=== PATIENT | female | born 1995 | race Two or more races ===

== ENCOUNTER 2021-07-03 13:26 | Emergency (ER) | payer BC, OTHER ==
[2021-07-03 13:53] VITALS: BP 101/58; PULSE 108; TEMP 98.2; BMI 26.6
[2021-07-03] MEDS ORDERED: KETOROLAC TROMETHAMINE 30 MG/1 ML VIAL IM ONE (15:17)
[2021-07-03] MEDS ORDERED: KETOROLAC TROMETHAMINE 30 MG/1 ML VIAL ONE (15:19)
[2021-07-03] MEDS ORDERED: ACETAMINOPHEN 500 MG TABLET (FP) ONE (16:47)
== END 2021-07-03 16:45 | disposition home or self-care (01) ==
LOC: JERFT 13:26
PROC: 3E0233Z Introduction of Anti-inflammatory into Muscle, Percutaneous Approach (ICD-10-PCS; principal; 2021-07-03)
DX: S82.832A Other fracture of upper and lower end of left fibula, initial encounter for closed fracture (principal); W10.1XXA Fall (on)(from) sidewalk curb, initial encounter; Y93.01 Activity, walking, marching and hiking
CPT/HCPCS: 73610-TC-LT-FY; 73630-TC-LT; 99284-25

== ENCOUNTER 2021-07-11 04:25 | Day surgery (SDC) | payer BC, OTHER ==
[2021-07-10 12:05] VITALS: BMI 25.8
[2021-07-11] MEDS ORDERED: MIDAZOLAM HCL 2 MG/2 ML SINGLE DOSE VIAL ONE ×2 (09:01)
[2021-07-11] MEDS ORDERED: BUPIVACAINE HCL/PF 0.5% (5MG/ML) 10 ML VIAL ONE (09:02)
[2021-07-11] MEDS ORDERED: BUPIVACAINE LIPOSOME/PF (EXPAREL) 266 MG/20 ML VIAL ONE (09:02)
[2021-07-11] MEDS ORDERED: MEPERIDINE HCL 25 MG/ML VIAL ONE (11:28)
[2021-07-11] MEDS ORDERED: ONDANSETRON 4 MG/2 ML VIAL IVPUSH PRN (11:39)
[2021-07-11] MEDS ORDERED: oxyCODONE HCL 5 MG TABLET PO PRN (11:39)
[2021-07-11] MEDS ORDERED: LACTATED RINGERS SOLUTION 1,000 ML IV SCH (11:45)
[2021-07-11] MEDS ORDERED: MEPERIDINE HCL CARPU-JECT 25 MG/1 ML DISP.SYRIN IVPUSH ONE (12:00)
[2021-07-11 14:20] VITALS: BP 105/65; PULSE 75; TEMP 98.4
== END 2021-07-11 13:35 | disposition home or self-care (01) ==
LOC: JASU-SURG 04:25
PROVIDERS: ATTEND Orthopaedic Surgery
PROC: 0QSK04Z Reposition Left Fibula with Internal Fixation Device, Open Approach (ICD-10-PCS; principal; 2021-07-11 10:45)
DX: S82.62XA Displaced fracture of lateral malleolus of left fibula, initial encounter for closed fracture (principal); X58.XXXA Exposure to other specified factors, initial encounter; Y93.9 Activity, unspecified; Y92.9 Unspecified place or not applicable; Y99.9 Unspecified external cause status
CPT/HCPCS: 27792; C1713; 76000-TC-FY; 81025; 94760